=== PATIENT | male | born 1950 | race Caucasian/White ===

== ENCOUNTER → 2023-04-05 15:00 | Outpatient (BNVA) | payer MEDICARE, SELFPAY | PROVIDERS: Referring Provider Nurse Practitioner Family; Visit Provider Dermatology | DX: D22.4 Melanocytic nevi of scalp and neck (principal); L57.0 Actinic keratosis; L82.1 Other seborrheic keratosis; L02.821 Furuncle of head [any part, except face] | CPT/HCPCS: 11102; 17000; 17003; 99203 ==

== ENCOUNTER → 2023-05-02 08:04 | Outpatient (BNVA) | payer MEDICARE, SELFPAY | PROVIDERS: Visit Provider Dermatology | DX: Z08 Encounter for follow-up examination after completed treatment for malignant neoplasm (principal) ==

== ENCOUNTER → 2023-05-16 08:55 | Outpatient (BNVA) | payer MEDICARE, SELFPAY | PROVIDERS: Visit Provider Dermatology | DX: Z48.02 Encounter for removal of sutures (principal) | CPT/HCPCS: 99024 ==

== ENCOUNTER → 2023-10-08 10:59 | Outpatient (BNVA) | payer MEDICARE, SELFPAY | PROVIDERS: PCP Nurse Practitioner Family; Visit Provider Nurse Practitioner Family | DX: L82.1 Other seborrheic keratosis (principal); L57.0 Actinic keratosis; L57.8 Other skin changes due to chronic exposure to nonionizing radiation; L81.4 Other melanin hyperpigmentation; D22.39 Melanocytic nevi of other parts of face | CPT/HCPCS: 17000; 99213 ==

== ENCOUNTER → 2024-04-14 10:14 | Outpatient (BNVA) | payer MEDICARE, SELFPAY | PROVIDERS: PCP Nurse Practitioner Family; Referring Provider Nurse Practitioner Family; Visit Provider Surgery | DX: K29.70 Gastritis, unspecified, without bleeding (principal); R10.13 Epigastric pain; R19.4 Change in bowel habit | CPT/HCPCS: 99204 ==

== ENCOUNTER 2024-05-07 06:22 | Day surgery (SDC) | payer MEDICARE, SELFPAY ==
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
[2024-05-07 06:40] VITALS: BP 190/106; PULSE 66; RESP 16; TEMP 36.7; O2SAT 98; BMI 30.2
[2024-05-07] MEDS: sodium chloride 0.9% 1,000 ML 30 ML IV (06:45)
[2024-05-07 06:52] LABS: Glucose Point of Care 124 mg/dL (70-110)
--- NOTE | 2024-05-07 07:22 | ANES.PREANE2 ---
Pre-Anesthetic Assessment Height/Weight: Height 1.75 m Weight 92.986 kg Temp Pulse Resp BP Pulse Ox O2 Del Method 98.0 F 66 16 190/106 98 Room Air 05/07/24 06:40 05/07/24 06:40 05/07/24 06:40 05/07/24 06:40 05/07/24 06:40 05/07/24 06:40 Operation Date: 05/07/24 07:30 Proposed Procedures p EGD 11627, 57209, G0105, K29.70, R10.9, Z12.11(Not Applicable) - Alberto Dominguez DO s Colonoscopy(Not Applicable) - Alberto Dominguez DO Familial anesthetic complications: None Was Beta Ryley taken within 24 hours: Yes Was Clonidine taken within 24 hours: N/A Last intake: Intake Last Liquid Date 05/06/24 Last Liquid Time 20:00 Last Solid Date 05/05/24 Last Solid Time 18:00 Social No alcohol and No tobacco Exam alert, oriented x 3, clear to auscultation bilaterally and regular rate & rhythm Airway Mallampati: Class II Dentition: other (missing) CV/HEM Hypertension GI Gastroesophageal Reflux Disease Metabolic Diabetes Mellitus Anesthetic Plan ASA status: 2 Anesthesia: MAC Risk of > 500 ml blood loss (7ml/kg in children): No Medications/Allergies Home Medications Medication Instructions Recorded Confirmed Last Taken Type losartan 100 mg tablet 100 mg PO DAILY 04/14/24 05/07/24 05/06/24 History metformin 500 mg tablet 500 mg PO BID 04/14/24 05/07/24 05/06/24 History methylphenidate HCl 20 mg tablet 10 mg PO .6XDAILY 04/14/24 05/07/24 05/07/24 History metoprolol succinate 100 mg 100 mg PO DAILY 04/14/24 05/07/24 05/06/24 History tablet,extended release 24 hr pantoprazole 40 mg tablet,delayed 40 mg PO DAILY 04/14/24 05/07/24 05/06/24 History release Allergies Allergy/AdvReac Type Severity Reaction Status Date / Time Penicillins Allergy Severe ALGY-Swell Verified 05/07/24 06:36 Lip/Tongue/Throat streptomycin Allergy Severe Unknown Verified 05/07/24 06:36 Data Anesthesia Cardiac Studies: No Data to Display
--- NOTE | 2024-05-07 07:26 | W.PM.OPSUD ---
Surgery/Procedure H&P Update DATE OF PROCEDURE: May 07, 2024 DATE H&P PERFORMED: 04/14/24 H&P UPDATE INFORMATION: I have reviewed H&P completed within last 30 days, I have examined patient prior to procedure and No changes to prior documentation PLANNED PROCEDURE: Operation Date: 05/07/24 07:30 Proposed Procedures p EGD 29033, 17598, G0105, K29.70, R10.9, Z12.11(Not Applicable) - DO jesus Benitez Colonoscopy(Not Applicable) - Alberto Dominguez DO
[2024-05-07 07:52] VITALS: BP 147/81; PULSE 57; RESP 20; TEMP 36.6; O2SAT 100
[2024-05-07 08:07] VITALS: BP 138/78; PULSE 60; RESP 18; O2SAT 95
--- NOTE | 2024-05-07 08:45 | ANE.PACU2 ---
Inpatient post-anesthesia follow up: Airway intact: Yes Vital signs: Temperature 97.9 F Pulse Rate 60 Respiratory Rate 18 Blood Pressure 138/78 Pulse Oximetry 95 Oxygen Delivery Me thod Room Air Oxygen Flow Rate 5 Fraction of Inspir ed Oxygen Hydration adequate: Yes Nausea and vomiting: No Pain level: 1 Mental status: Baseline
== END 2024-05-07 08:48 | disposition home or self-care (01) ==
PROVIDERS: PCP Nurse Practitioner Family; Visit Provider Surgery
PROC: 0DJ08ZZ Inspection of Upper Intestinal Tract, Via Natural or Artificial Opening Endoscopic (ICD-10-PCS; CPT 43235; principal; 2024-05-07 07:30)
PROC: 0DJD8ZZ Inspection of Lower Intestinal Tract, Via Natural or Artificial Opening Endoscopic (ICD-10-PCS; CPT 45378; 2024-05-07 07:30)
DX: Z12.11 Encounter for screening for malignant neoplasm of colon (principal); K29.70 Gastritis, unspecified, without bleeding; D12.3 Benign neoplasm of transverse colon; K29.50 Unspecified chronic gastritis without bleeding; I10 Essential (primary) hypertension; K21.9 Gastro-esophageal reflux disease without esophagitis; E11.9 Type 2 diabetes mellitus without complications; Z79.84 Long term (current) use of oral hypoglycemic drugs
CPT/HCPCS: 36416; 43239; 45385; 82962; 88305; 88342; J2704; J7030

== ENCOUNTER → 2024-05-26 09:36 | Outpatient (BNVA) | payer MEDICARE, SELFPAY | PROVIDERS: PCP Nurse Practitioner Family; Visit Provider Surgery | DX: Z09 Encounter for follow-up examination after completed treatment for conditions other than malignant neoplasm (principal); Z98.890 Other specified postprocedural states; K29.70 Gastritis, unspecified, without bleeding; R10.9 Unspecified abdominal pain; D37.4 Neoplasm of uncertain behavior of colon | CPT/HCPCS: 99214 ==

== ENCOUNTER → 2024-09-01 14:15 | Outpatient (BNVA) | payer MEDICARE, SELFPAY | PROVIDERS: PCP Nurse Practitioner Family; Visit Provider Surgery | DX: R03.0 Elevated blood-pressure reading, without diagnosis of hypertension (principal); K29.70 Gastritis, unspecified, without bleeding; R10.9 Unspecified abdominal pain | CPT/HCPCS: 99214 ==

== ENCOUNTER → 2024-10-01 11:25 | Outpatient (BNVA) | payer MEDICARE, SELFPAY | PROVIDERS: PCP Nurse Practitioner Family; Visit Provider Nurse Practitioner Family | DX: L82.1 Other seborrheic keratosis (principal); L57.8 Other skin changes due to chronic exposure to nonionizing radiation; L81.4 Other melanin hyperpigmentation; D22.39 Melanocytic nevi of other parts of face; D22.61 Melanocytic nevi of right upper limb, including shoulder; L82.0 Inflamed seborrheic keratosis; L53.8 Other specified erythematous conditions; L29.89 Other pruritus; D48.5 Neoplasm of uncertain behavior of skin; L57.0 Actinic keratosis | CPT/HCPCS: 11102; 17000; 17110; 99213 ==

== ENCOUNTER → 2024-11-17 08:04 | Outpatient (BNVA) | payer MEDICARE, SELFPAY | PROVIDERS: PCP Nurse Practitioner Family; Visit Provider Dermatology | DX: C44.311 Basal cell carcinoma of skin of nose (principal); C44.319 Basal cell carcinoma of skin of other parts of face; L57.0 Actinic keratosis | CPT/HCPCS: 13132; 14060; 17000; 17311 ==

== ENCOUNTER → 2025-03-26 10:42 | Outpatient (BNVA) | payer MEDICARE, SELFPAY | PROVIDERS: PCP Nurse Practitioner Family; Visit Provider Nurse Practitioner Family | DX: L57.8 Other skin changes due to chronic exposure to nonionizing radiation (principal); Z08 Encounter for follow-up examination after completed treatment for malignant neoplasm; Z85.828 Personal history of other malignant neoplasm of skin; S40.862A Insect bite (nonvenomous) of left upper arm, initial encounter; D48.5 Neoplasm of uncertain behavior of skin; L57.0 Actinic keratosis; X58.XXXA Exposure to other specified factors, initial encounter | CPT/HCPCS: 10120; 11102; 17000; 99214 ==